=== PATIENT | male | born 1975 | race African-American/Black ===

== ENCOUNTER 2017-07-16 01:10 | Emergency (ER) | payer OTHER ==
[~2017-07-16] VITALS: Ht 180.3 cm; Wt 156.0 kg
[~2017-07-16 01:10] MED LIST: AVAPRO300 MG; CHLORTHALIDONE25 MG; LIPITOR 20 MG T20 M1; METFORMIN HCL500 MG; NORVASC2.5 MG; PREDNISONE50 MG PO
[2017-07-16] MEDS ORDERED: AVAPRO300 MG PO (01:21)
[2017-07-16] MEDS ORDERED: GLUCOPHAGE1000 MG PO (01:21)
[2017-07-16] MEDS ORDERED: FLAGYL500 MG PO (01:22)
[2017-07-16] MEDS ORDERED: CIPRO500 MG PO (01:22)
[2017-07-16] MEDS ORDERED: AMARYL2 M1 PO (01:22)
[2017-07-16 01:42] LABS: ABSOLUTE BASOPHILS 0.1 thou/uL (0.0-0.2); ABSOLUTE EOSINOPHILS 0.1 thou/uL (0.0-0.7); ABSOLUTE LYMPHOCYTES 2.6 thou/uL (0.8-5.3); ABSOLUTE MONOCYTES 0.7 thou/uL (0.0-1.2); ABSOLUTE NEUTROPHILS 3.4 thou/uL (1.6-8.1); BASOPHILS 0.8 %; HEMATOCRIT 44.4 % (42.0-52.0); HEMOGLOBIN 14.8 gm/dL (14.0-18.0); MCH 29.1 pg (26.0-34.0); MCHC 33.3 g/dL (28.0-37.0); MCV 87.4 fL (80.0-100.0); MONOCYTES 9.6 %; NUCLEATED RBCS 0 /100WBC; PLATELET COUNT* 230 thou/uL (150-400); POLYS 50.6 %; RBC 5.08 mil/uL (4.50-6.00); WBC 6.8 thou/uL (4.0-11.0)
[2017-07-16 01:46] LABS: CALCIUM 9.3 mg/dL (8.5-10.1); CREATININE 1.6 mg/dL (0.6-1.3); POTASSIUM 3.5 mmol/L (3.5-5.1)
[2017-07-16 01:50] LABS: ALBUMIN 3.8 g/dL (3.4-5.0); TOTAL BILIRUBIN 0.6 mg/dL (<0.1-1.0); TOTAL PROTEIN 7.5 g/dL (6.4-8.2)
[2017-07-16 01:52] LABS: PCO2 VENOUS 33.6 mmHg (41.0-51.0)
[2017-07-16 01:53] LABS: BE 0.2 mmol/L (-2 to +3); HCO3 23.3 mmol/L (22.0-26.0); PO2 VENOUS 27.9 mmHg (35.0-45.0)
[2017-07-16 05:14] VITALS: BP 138/70
== END 2017-07-16 05:25 | disposition home or self-care (01) ==
LOC: M.ERS 01:10
PROVIDERS: Personal Emergency Response Attendant
DX: E11.65 Type 2 diabetes mellitus with hyperglycemia (principal); I10 Essential (primary) hypertension